=== PATIENT | female | born 1995 | race African-American/Black ===

== ENCOUNTER 2017-10-02 21:36 | Emergency (ER) | payer OTHER ==
[2017-10-02 21:53] VITALS: BP 119/65; PULSE 92; TEMP 98.8; BMI 49.4
--- NOTE | 2017-10-02 22:18 | PDOC ---
History of Present Illness - General Chief Complaint: Injury Stated Complaint: Left ankle/foot pain Time Seen by Provider: 10/02/17 22:17 History Source: Patient - History of Present Illness Initial Comments: 10/02/17 22:32 22 year old female s/p trip and fall and twisted left ankle prior to arrival, now with left ankle pain and swelling with unable to weight bear. NO DEFORMITY. + sensation pmhx: diabetes mellitus 10/02/17 23:24 Past History - Past Medical History Allergies/Adverse Reactions: Allergies Allergy/AdvReac Type Severity Reaction Status Date / Time No Known Allergies Allergy Verified 10/02/17 21:51 Home Medications: Ambulatory Orders NK [No Known Home Medication] 10/02/17 COPD: No Other medical history: Denies - Immunization History Immunization Up to Date: No - Suicide/Smoking/Psychosocial Hx Smoking History: Never smoked Have you smoked in the past 12 months: No Information on smoking cessation initiated: No Hx Alcohol Use: No Drug/Substance Use Hx: No Substance Use Type: None Review of Systems - Review of Systems Able to Perform ROS?: Yes Is the patient limited Vietnamese proficient: No Musculoskeletal: Yes: Other (left ankle pain) *Physical Exam - Vital Signs Last Vital Signs Temp Pulse Resp BP Pulse Ox 98.8 F 92 H 19 119/65 100 10/02/17 21:47 10/02/17 21:47 10/02/17 21:47 10/02/17 21:47 10/02/17 21:47 - Physical Exam General Appearance: Yes: Appropriately Dressed Extremity: positive: Normal Capillary Refill, Normal Inspection, Other (left ankle lateral aspect. No deformity noted + swelling. unable to weight bear. ) ED Treatment Course - RADIOLOGY Radiograph Interpretation: 10/02/17 23:24 xray: no fracture official read pending. Progress Note - Progress Note Progress Note: A: left ankle pain and swelling P: xray pain control *DC/Admit/Observation/Transfer Diagnosis at time of Disposition: Left ankle sprain Qualifiers: Encounter type: initial encounter Involved ligament of ankle: other ligament Qualified Code(s): S93.492A - Sprain of other ligament of left ankle, initial encounter - Discharge Dispostion Disposition: HOME Condition at time of disposition: Fair - Referrals Referrals: Jed Puente MD [Primary Care Provider] - Kwasi Gonzales MD [Staff Physician] - Call tomorrow - Patient Instructions Printed Discharge Instructions: DI for Ankle Sprain Additional Instructions: REST ICE ELEVATE keep in splint follow up with ortho as soon as possible. take tylenol every 6 hours as needed for pain. - Post Discharge Activity Forms/Work/School Notes: Back to Work
[2017-10-02] MEDS ORDERED: IBUPROFEN 400 MG TABLET (FP) PO ONE ×2 (22:50→23:06)
--- NOTE | 2017-10-02 23:17 | PDOC ---
*Physical Exam - Vital Signs Last Vital Signs Temp Pulse Resp BP Pulse Ox 98.8 F 92 H 19 119/65 100 10/02/17 21:47 10/02/17 21:47 10/02/17 21:47 10/02/17 21:47 10/02/17 21:47 ED Treatment Course - Medications Given in the ED: ED Medications Discontinued Medications Generic Name Dose Route Start Last Admin Trade Name Nikky PRN Reason Stop Dose Admin Ibuprofen 800 mg 10/02/17 22:50 10/02/17 23:08 Motrin - PO 10/02/17 22:51 800 mg ONCE ONE Administration Medical Decision Making - Medical Decision Making 10/02/17 23:17 agree with care from ALEX Roman *DC/Admit/Observation/Transfer Diagnosis at time of Disposition: Left ankle sprain Qualifiers: Encounter type: initial encounter Involved ligament of ankle: other ligament Qualified Code(s): S93.492A - Sprain of other ligament of left ankle, initial encounter - Discharge Dispostion Condition at time of disposition: Fair - Referrals Referrals: Kwasi Gonzales MD [Staff Physician] - Call tomorrow Jed Puente MD [Primary Care Provider] - - Patient Instructions Printed Discharge Instructions: DI for Ankle Sprain Additional Instructions: REST ICE ELEVATE keep in splint follow up with ortho as soon as possible. take tylenol every 6 hours as needed for pain. - Post Discharge Activity
== END 2017-10-02 23:57 | disposition home or self-care (01) ==
LOC: JER 21:36
PROC: 2W3RX1Z Immobilization of Left Lower Leg using Splint (ICD-10-PCS; principal; 2017-10-02)
DX: S93.492A Sprain of other ligament of left ankle, initial encounter (principal); X50.1XXA Overexertion from prolonged static or awkward postures, initial encounter; Y93.89 Activity, other specified; Y92.89 Other specified places as the place of occurrence of the external cause; Y99.8 Other external cause status
CPT/HCPCS: 73610-TC-LT; 73630-TC-LT; 84703; 99281-25

== ENCOUNTER 2024-10-02 20:46 | Emergency (ER) | payer OTHER ==
[2024-10-02 20:58] VITALS: RESP 18; TEMP 98.6; BMI 42.4
[2024-10-02] MEDS ORDERED: LIDOCAINE 4% PATCH TP ONE (21:47)
[2024-10-02] MEDS ORDERED: CYCLOBENZAPRINE HCL 5 MG TABLET ONE (21:47)
[2024-10-02] MEDS: LIDOCAINE 5% TOPICAL PATCH TP ONE (21:50)
[2024-10-02] MEDS: CYCLOBENZAPRINE HCL 10 MG TABLET (FP) PO ONE (21:50)
[2024-10-02] MEDS: LIDOCAINE PATCH REMOVAL MC SCH (22:13)
[2024-10-02 22:20] LABS: PH,URINE 5.5 (5.0-8.0); URINE APPEARANCE CLEAR; URINE BILIRUBIN NEGATIVE (NEGATIVE); URINE COLOR DK YELLOW; URINE GLUCOSE (UA) NEGATIVE (NEGATIVE); URINE KETONE TRACE (NEGATIVE); URINE LEUK ESTERASE NEGATIVE (NEGATIVE); URINE NITRITE NEGATIVE (NEGATIVE); URINE PROTEIN TRACE (NEGATIVE); URINE UROBILINOGEN 0.2 mg/dL (0.2-1.0)
[2024-10-02 22:35] LABS: HCG,QUALITATIVE URINE NEGATIVE
[2024-10-03 00:50] LABS: BASO % 1.5 % (0-2.0); EOS % 1.8 % (0-4.5); HEMATOCRIT 42.7 % (32.4-45.2); HEMOGLOBIN 13.8 GM/dL (10.7-15.3); LYMPH % 37.9 % (8-40); MCH 28.8 pg (25.7-33.7); MCHC 32.5 g/dl (32.0-36.0); MEAN CELL VOLUME 88.8 fl (80-96); MEAN PLT VOLUME 8.6 fl (7.5-11.1); MONO % 7.7 % (3.8-10.2); NEUT % 51.1 % (42.8-82.8); PLATELET COUNT 314 10^3/uL (134-434); RDW 13.5 % (11.6-15.6); WHITE BLOOD COUNT 11.9 K/mm3 (4.0-10.0)
[2024-10-03 01:24] LABS: POTASSIUM 4.2 mmol/L (3.5-5.1)
[2024-10-03 01:25] LABS: CALCIUM 9.4 mg/dL (8.5-10.1)
[2024-10-03 01:26] LABS: BLOOD UREA NITROGEN 8.8 mg/dL (7-18)
[2024-10-03 01:29] LABS: CREATININE 0.6 mg/dL (0.55-1.3)
[2024-10-03 01:31] LABS: BILIRUBIN,TOTAL 0.4 mg/dL (0.2-1); TOT PROT 7.6 g/dl (6.4-8.2)
[2024-10-03 03:51] VITALS: BP 126/82; PULSE 76
== END 2024-10-03 03:51 | disposition home or self-care (01) ==
LOC: JER 20:46
DX: R10.9 Unspecified abdominal pain (principal); M54.50 Low back pain, unspecified; R11.0 Nausea
CPT/HCPCS: 36415; 74177-TC; 76830-TC; 80053; 81003; 84703; 85025; 87086; 99285-25; Q9967